=== PATIENT | male | born 1940 | race Caucasian/White ===

== ENCOUNTER 2021-08-24 13:14 | Outpatient (CLI) | payer SELFPAY ==
--- NOTE | 2021-08-24 13:00 | DI.RAD_ITS ---
Exam(s) XR SHOULDER LT COMPLETE 2+V EXAM: XR SHOULDER LT COMPLETE 2+V CLINICAL HISTORY: evaluation TECHNIQUE: COMPARISON: CR XR SHOULDER RT COMPLETE 2+V from 08/24/2021 FINDINGS: Two views were obtained. There is moderate loss of cartilaginous joint space of glenohumeral joint. The humeral head is subluxed superiorly and abuts the inferior expect of the acromion with subchondr al sclerosis of the humeral head and acromion, this suggests chronic rotator cuff tear or thinning. There are prominent hypertrophic marginal osteophytes at the inferior aspect of the humeral head and to a lesser degree the glenoid. Moderate hypertrophic changes of the AC joint noted as well. IMPRESSION: Degenerative changes as described above. RADIATION DOSE DELIVERED: Total DLP
--- NOTE | 2021-08-24 13:00 | DI.RAD_ITS ---
Exam(s) XR ELBOW RT LIMITED EXAM: XR ELBOW RT LIMITED CLINICAL HISTORY: pain TECHNIQUE: COMPARISON: No exams were available for comparison FINDINGS: Two views were obtained. There is marked soft tissue swelling over the olecranon and there is a prom inent olecranon enthesophyte. There appears to be some narrowing of the cartilaginous joint space of the radial capitellar joint. Mild marginal osteophyte formation of the joints of the elbow is noted . No other significant bony or soft tissue abnormality seen. IMPRESSION: Degenerative changes, olecranon soft tissue swelling could be associated with olecranon bursitis, ple ase correlate clinically. RADIATION DOSE DELIVERED: Total DLP
--- NOTE | 2021-08-24 13:00 | DI.RAD_ITS ---
Exam(s) XR SHOULDER RT COMPLETE 2+V EXAM: XR SHOULDER RT COMPLETE 2+V CLINICAL HISTORY: evaluation TECHNIQUE: COMPARISON: No exams were available for comparison FINDINGS: Two views were obtained. There is severe loss of the cartilaginous joint space of the glenohumeral j oint with some flattening of the humeral head and glenoid and very prominent marginal osteophytes of these bones, particularly inferiorly. There are moderate hypertrophic changes of the acromioclavicul ar joint noted as well. Soft tissue calcifications are noted superior to the AC joint. IMPRESSION: Severe DJD glenohumeral joint. RADIATION DOSE DELIVERED: Total DLP
== END 2021-08-24 13:15 | disposition home or self-care (01) ==
LOC: DIORS 13:20
PROVIDERS: PCP Family Medicine; Referring Provider Family Medicine; Visit Provider Physician Assistant Surgical
DX: M25.521 Pain in right elbow (principal); M79.89 Other specified soft tissue disorders; M77.8 Other enthesopathies, not elsewhere classified; M25.511 Pain in right shoulder; M19.011 Primary osteoarthritis, right shoulder; M25.512 Pain in left shoulder; M19.012 Primary osteoarthritis, left shoulder; M75.102 Unspecified rotator cuff tear or rupture of left shoulder, not specified as traumatic
CPT/HCPCS: 73030; 73070

== ENCOUNTER 2022-06-30 08:39 | Emergency (ER) | payer SELFPAY ==
--- NOTE | 2022-06-30 08:45 | DI.RAD_ITS ---
Exam(s) XR KNEE LT 4V AP,LAT,KARRIE,PAT EXAM: XR KNEE LT 4V AP,LAT,KARRIE,PAT CLINICAL HISTORY: Fall, Swelling, pain R/O Fracture. TECHNIQUE: 2D digital imaging was performed. COMPARISON: No exams were available for comparison FINDINGS: 3 views There is prominent soft tissue swelling anterior to the patella and lower quadriceps tendon. The joanie earance may reflect both skin and subcutaneous thickening as well as a possible fluid collection at t his level. No radiopaque foreign body. Osteophytic densities are seen anterior to the upper patella but does not have the appearance of a true fracture fragment. The patellofemoral joint space compar tment appears unremarkable. There is slight increased density noted within the anterior intra-articu lar Hoffa fat pad. Also with subcutaneous edema noted anterior to the patellar ligament. There is a possible small joint effusion here. Femoral condyles and tibial plateau as well as in the fibular h ead and neck appear unremarkable. No fractures nor obvious degenerative changes. Tiny benign bone i sland is noted in the medial tibial plateau. IMPRESSION: Significant swelling and possible fluid collection anterior to the patella as described above. Also other findings as above. No fractures evident. No significant degenerative changes, particularly gi desire this patient's advanced age. Recommend follow-up MRI. DATA REPOSITORY: RADIATION DOSE DELIVERED:
[2022-06-30 08:51] VITALS: BP 126/71; PULSE 96; RESP 18; TEMP 36.7; O2SAT 99
--- NOTE | 2022-06-30 08:56 | W.ED.GENAD ---
Discharge Plan Disposition Patient Disposition: Home Condition: Stable Discharge Details Clinical Impression: Gouty arthritis of left knee Primary Care Provider: Carmen Romo V ED Provider: Ailyn Sanchez Home Meds and New Rx's Prescriptions: Continued indomethacin 50 mg capsule 50 mg PO TID Rx Instructions: administer with food or milk Discharge Instructions Instructions: Gout (ED) Additional Instructions: At this time there is no evidence for any acute fracture however you do have some increased fluid around the knee joint. I do believe that this is an exacerbation of gouty arthritis caused by trauma. Please continue to take your indomethacin as previously prescribed. You were given a dose here in the department. Please follow-up with orthopedics within the next 1 to 2 weeks, sooner if you have any worsening or spreading of the redness. Rest, ice, compression, elevation while sitting or lying down. Wear the knee splint as needed for comfort. Referrals: Carmen Romo MD [Primary Care Provider] - Jason Souza MD [ [facility]] - 2 weeks Medical Decision Making 82-year-old male presents to the ER accompanied by his family with a chief complaint of left knee pain status post a fall while out in the past approximately 3 days ago. [facility] reports that he reported he slipped on some ice and fell onto his left knee. He did take Tylenol initially but has not taken anything for pain for the last couple of days. 4 view left knee x-ray ordered, Tylenol. Differential diagnosis includes but not limited to fracture, occult fracture, traumatic gouty arthritis flare, less likely septic joint. Please see report below. No acute fractures evident. Do suspect traumatic gouty arthritis. Patient was placed in a hinged knee brace and given indomethacin and instructed to take the indomethacin which he has at home. Discussed RICE procedures and home care strict return instructions and follow-up if any worsening redness or no improvement. Significant other verbalized understanding and patient verbalized understanding. This text was generated using [employer] system, please disregard any oddities of phrase or misspellings. Medical Records Medical records reviewed: Yes I reviewed the patient's medical records. Imaging Data Radiologic Study: Imaging: X-Ray Radiologist's impression: FINDINGS: 3 views There is prominent soft tissue swelling anterior to the patella and lower quadriceps tendon.? The appearance may reflect both skin and subcutaneous thickening as well as a possible fluid collection at this level.? No radiopaque foreign body.? Osteophytic densities are seen anterior to the upper patella but does not have the appearance of a true fracture fragment.? The patellofemoral joint space compartment appears unremarkable.? There is slight increased density noted within the anterior intra-articular Hoffa fat pad.? Also with subcutaneous edema noted anterior to the patellar ligament.? There is a possible small joint effusion here.? Femoral condyles and tibial plateau as well as in the fibular head and neck appear unremarkable.? No fractures nor obvious degenerative changes.? Tiny benign bone island is noted in the medial tibial plateau. IMPRESSION: Significant swelling and possible fluid collection anterior to the patella as described above.? Also other findings as above.? No fractures evident.? No significant degenerative changes, particularly given this patient's advanced age. HPI General Mode of arrival: wheelchair. Date/Time Provider Initiated Documentation: 06/30/22 08:39. Limitations to Documentation: no limitations and physical limitation (Slightly [place], ). Information obtained by: patient, family, RN notes reviewed and old records reviewed. HPI Narrative: 82-year-old male presents to the ER accompanied by his family with a chief complaint of left knee pain status post a fall while out in the past approximately 3 days ago. [facility] reports that he reported he slipped on some ice and fell onto his left knee. He did take Tylenol initially but has not taken anything for pain for the last couple of days. He does present with a knee immobilizer which his placed on his knee. On initial exam he does have some erythema and swelling and tenderness. Does have a history of gouty arthritis, tobacco use, arthritis and rotator cuff tear. He does not currently take any medications on a regular basis. Related Data Home Medications Medication Instructions Recorded Confirmed indomethacin 50 mg capsule 50 mg PO TID 08/23/21 06/30/22 Allergies Allergy/AdvReac Type Severity Reaction Status Date / Time bee venom protein (honey bee) Allergy Severe Verified 06/30/22 08:55 thimerosal Allergy Intermediate Verified 06/30/22 08:55 [From Merthiolate (thimerosal)] General Stated Complaint: Orthopedic KAVEH: 4 Review of Systems All systems reviewed & are unremarkable except as noted in HPI and below ENT Ears, Nose, Mouth, and Throat: Denies neck pain Musculoskeletal Musculoskeletal: Reports as per HPI, Denies back pain, Reports arthralgias, Reports joint swelling and Denies neck pain Integumentary/Breasts Skin/Breast: Reports as per HPI and Reports skin swelling PFSH All Active Problems (Updated 06/30/22 @ 10:18 by Ailyn Sanchez NP) Gouty arthritis of left knee (Acute) Gouty bursitis of right olecranon (Acute) Arthritis of right shoulder region (Acute) Rotator cuff tear arthropathy of left shoulder (Acute) Vision changes (Acute) Medical History History of tobacco use Social History Smoking/Tobacco Use Status: Former Tobacco Use Smoking risk assessment performed?: Yes Alcohol Intake: former Drug use: Never Substance use type: does not use Current gender identity: male Exam Extrem Knee images: 1. Erythema, swelling tenderness Course Vital Signs Vital signs: Vital Signs Temperature 36.7 C 06/30/22 08:51 Pulse 96 H 06/30/22 08:51 Respiratory Rate 18 06/30/22 08:51 Blood Pressure 126/71 06/30/22 08:51 Pulse Oximetry 99 06/30/22 08:51 Temperature 36.7 C 06/30/22 08:51 Temperature Source Temporal Artery Scan 06/30/22 08:51 Pulse 96 H 06/30/22 08:51 Respiratory Rate 18 06/30/22 08:51 Blood Pressure 126/71 06/30/22 08:51 Blood Pressure Position Sitting 06/30/22 08:51 Pulse Oximetry 99 06/30/22 08:51 Oxygen Delivery Method Room Air 06/30/22 08:51 Oxygen Flow Rate 0 06/30/22 08:51
[2022-06-30] MEDS: Acetaminophen 500 MG TAB PO (09:05)
[2022-06-30] MEDS: Indomethacin 25 MG CAP 50 MG PO (10:23)
== END 2022-06-30 10:34 | disposition home or self-care (01) ==
PROVIDERS: Emergency Provider Registered Nurse Emergency; PCP Family Medicine
DX: M25.562 Pain in left knee (principal); W00.0XXA Fall on same level due to ice and snow, initial encounter; M10.9 Gout, unspecified
CPT/HCPCS: 29505; 99283; 73564

== ENCOUNTER 2024-11-25 17:30 | Emergency (ER) | payer MEDICARE, MEDICAID, SELFPAY ==
[2024-11-25 17:34] VITALS: BP 150/72; PULSE 84; RESP 20; TEMP 37.1; O2SAT 96
--- NOTE | 2024-11-25 17:45 | DI.CT_ITS ---
Exam(s) CT HEAD CERVICAL SPINE WO EXAM: CT HEAD CERVICAL SPINE WO CLINICAL HISTORY: knocked down by dog, dementia. TECHNIQUE: Imaging Protocol: Axial computed tomography images with coronal and sagittal reformatted images were created and reviewed COMPARISON: No exams were available for comparison FINDINGS: Head CT Ventricles and Extra axial spaces: Normal in size and morphology for the patient's age. Hemorrhage: None. Cerebral parenchyma: No evidence of mass or acute infarct. Moderate atrophy. Moderate bilateral a reas of low attenuation in the white matter consistent with small vessel disease. Midline shift: None. Brainstem/Cerebellum: Normal. Calvarium: Normal. Visualized Paranasal sinuses/Mastoids: Mucous at the floor of the right maxillary sinus. Soft tissues: Unremarkable. Cervical Spine CT BONES: Vertebral body heights are maintained. Degenerative straightening of the normal cervical lord osis. There is no evidence of acute fracture. Severe degenerative disc changes and facet degenerative changes are seen . SOFT TISSUES: No paraspinal hematoma. The airway appears intact. No pneumothorax is seen at the lung apices. IMPRESSION: Head CT: No acute abnormality. C-spine CT: Degenerative changes, no acute abnormality. RADIATION DOSE DELIVERED: Total DLP DATA REPOSITORY: All CT scans at this facility are submitted to the National Radiology Data Registry (NRDR) Dose Index Registry (DIR) with the [employer] ([employer]). RADIATION OPTIMIZATION: All CT scans at this facility use at least one of these dose optimization te chniques: automated exposure control; mA and/or kV adjustment per patient size (includes targeted exa ms where dose is matched to clinical indication); or iterative reconstruction.
--- NOTE | 2024-11-25 17:45 | DI.RAD_ITS ---
Exam(s) XR FOREARM RT EXAM: XR FOREARM RT CLINICAL HISTORY: dog attack, multiple puncture wounds. TECHNIQUE: 2D digital imaging was performed. Two views. COMPARISON: CR XR ELBOW RT LIMITED from 08/24/2021 FINDINGS: BONES: No acute fracture is present. No bony destructive lesion is seen. Severe degenerative changes of the distal radial ulnar joint and 1st carpal metacarpal joint. Spurring at the olecranon and maximino noid process as well as margin of the radial head. SOFT TISSUE: Extensive soft tissue air in the mid to distal forearm related to dog bite. Chronic of focal swelling at the olecranon. Vascular calcifications. IMPRESSION: Extensive soft tissue injury to the mid to distal forearm. No evidence of fracture. DATA REPOSITORY: RADIATION DOSE DELIVERED:
[2024-11-25 17:46] VITALS: PULSE 89; O2SAT 97
--- NOTE | 2024-11-25 17:47 | ED.GENADUL_ITS ---
Discharge Plan Disposition Patient Disposition: Home Discharge Details Clinical Impression: Dog bite Primary Care Provider: Carmen Romo V ED Provider: Mary Amaya Home Meds and New Rx's Prescriptions: New amoxicillin-pot clavulanate 875-125 mg tablet 1 tab PO BID Qty: 8 0RF No Action indomethacin 50 mg capsule 50 mg PO TID Rx Instructions: administer with food or milk memantine 10 mg tablet 10 mg PO QPM Discharge Instructions Instructions: Animal Bites ED Additional Instructions: Please call your primary care provider first thing in the morning to schedule follow-up appointment for reassessment and to make sure your wounds are healing up well. Your scans were reassuring. Your tetanus is up-to-date, last was given in 2021 Please keep your wounds clean and dry. Wash daily with antibacterial soap and water. You may apply a thin layer of bacitracin or triple antibiotic ointment. Cover with nonstick bandages. Please take the Augmentin as prescribed to help prevent infection Return to emergency care if you develop new fever/chills, severe headaches, uncontrollable vomiting, redness/swelling/pain around wounds concerning for infection, or if you are very worried and need to be rechecked again immediately Referrals: Carmen Romo MD [Primary Care Provider] - HPI <Mary Paris - Last Filed: 11/25/24 21:16> General Date/Time Provider Initiated Documentation: 11/25/24 17:39 . HPI Narrative: Max is an 84-year-old male with history of dementia who presents to the emergency department accompanied by family for evaluation after dog attack. He reports that a family member's dog which is a part [employer] saw him outside and jumped through the screen door, attacking him. Patient reports he was knocked to the ground (grass), denies loss of consciousness. Dog stopped attack without intervention. He is a family members dog, up-to-date for shots. Slava sustained lacerations/puncture wounds to right forearm, right side of abdomen, and left ear lobe/pinna. History limited due to patient's dementia. He is not on anticoagulation. Related Data Home Medications ?Medication ?Instructions ?Recorded ?Confirmed indomethacin 50 mg capsule 50 mg PO TID 08/23/21 11/25/24 memantine 10 mg tablet 10 mg PO QPM 10/14/24 11/25/24 amoxicillin 875 mg-potassium 1 tab PO BID #8 tabs 11/25/24 clavulanate 125 mg tablet Previous Rx's ?Medication ?Instructions ?Recorded amoxicillin 875 mg-potassium 1 tab PO BID #8 tabs 11/25/24 clavulanate 125 mg tablet Allergies Allergy/AdvReac Type Severity Reaction Status Date / Time bee venom protein (honey bee) Allergy Severe Anaphylaxis Verified 11/25/24 17:46 thimerosal (From Merthiolate Allergy Intermediate Hives Verified 11/25/24 17:46 (thimerosal)) General Stated Complaint: Laceration KAVEH: 4 Exam <Mary Cesarhimi Wellington SendTask Filed: 11/25/24 21:16> Const General: cooperative, healthy appearing, comfortable and no acute distress Nutritional Appearance: thin Orientation: alert and oriented x3 HENMT Head: normal to inspection, no palpable skull fracture and normocephalic Head images: 2 1. Through and through laceration to pinna of left ear, as well as superficial lacerations to earlobe Ears: hearing grossly normal bilaterally and other General nose exam: external nose normal Face and sinus: normal facial exam Mouth: oral mucosae normal Throat: posterior oropharynx normal Neck Neck: normal visual inspection, full ROM and no lymphadenopathy Chest Chest: normal inspection of the chest and normal palpation of entire chest wall Resp Effort & Inspection: normal respiratory effort and able to speak in complete sentences Auscultation: clear to auscultation bilaterally Cardio Rate: regular rate Rhythm: regular rhythm Pulses: radial pulses present GI Inspection: other (puncture wound and bruising w/ teeth eisenberg to R side of abdomen) Palpation: soft, not firm, no guarding and not rigid Auscultation: normal bowel sounds Skin Trauma: laceration (superficial to R forearm) Other: Neuro General: patient alert, tone normal and moves all extremities Cranial Nerves: PERRL, EOM intact bilaterally, no nystagmus and facial strength normal Cognition: abnormal cognition (dementia at baseline) Speech: speech normal Motor: muscle tone normal throughout and strength 5/5 throughout Sensory Exam: no sensory deficits noted Extrem General: full ROM, capillary refill normal, no pedal edema and no calf tenderness Course <Mary M Choco Agendize Filed: 11/25/24 21:16> Vital Signs Vital signs: Vital Signs Temperature 37.1 C 11/25/24 17:34 Pulse 84 11/25/24 17:34 Respiratory Rate 20 11/25/24 17:34 Blood Pressure 150/72 H 11/25/24 17:34 Pulse Oximetry 96 11/25/24 17:34 Temperature 37.1 C 11/25/24 17:34 Temperature Source Oral 11/25/24 17:34 Pulse 84 11/25/24 17:34 Respiratory Rate 20 11/25/24 17:34 Blood Pressure 150/72 H 11/25/24 17:34 Pulse Oximetry 96 11/25/24 17:34 Medical Decision Making <Mary Paris - Last Filed: 11/25/24 21:16> Initial Assessment: 84-year-old male with dog bite injuries, including a laceration on the earlobe and a puncture wound on the arm. Patient fell to the ground during the incident, raising concerns due to his age and history of dementia limiting history and exam. I did review patient's chart, last Tdap was in 2021 ED Course: - Physical examination revealed a laceration on the earlobe and a puncture wounds on the R arm and R side of abdomen -Wounds cleansed by ED techs with irrigation and chlorhexidine. No foreign bodies visualized in wounds; wounds explored to the base in a bloodless field - Conducted head and neck examination due to fall and dementia history. - Ordered arm x-ray to assess injury. - Planned head and neck imaging to rule out potential injuries; no acute abnormalities noted. Patient does not have any neck pain - No red flags concerning for acute intra-abdominal injury, as mechanism of injury likely a pulling of the skin by the dog; patient denies abdominal pain and has no tenderness to palpation. Abdominal POCUS performed with Dr. Thomas at bedside, no free fluid noted. Final Assessment: Patient sustained a dog bite resulting in a laceration on the earlobe and a puncture wound on the arm. Given the patient's fall and history of dementia, head and neck imaging is warranted to rule out additional injuries. Arm x-ray ordered to assess the extent of the arm injury. Clinical Impression: - Dog bite - Laceration on earlobe - Puncture wounds (R forearm, R abdomen) Disposition: - Discharge MDM Components Evaluation: - Number of Differential Diagnoses or Management Options: Dog bite, fall-related injuries - Amount and Complexity of Data Reviewed: Physical examination, arm x-ray, head and neck imaging - Risk of Complication and Morbidity or Mortality: Increased risk due to patient's age and history of dementia Patient consented to the use of [facility] Imaging Data Radiologic Study: Radiologist's impression: PROCEDURE INFORMATION: Exam: CT Head Without Contrast Exam date and time: 11/25/2024 6:13 PM Age: 84 years old Clinical indication: Other: Knocked down by dog, dementia TECHNIQUE: Imaging protocol: Computed tomography of the head without contrast. Total images: 1888 Radiation optimization: All CT scans at this facility use at least one of these dose optimization techniques: automated exposure control; mA and/or kV adjustment per patient size (includes targeted exams where dose is matched to clinical indication); or iterative reconstruction. COMPARISON: No relevant prior studies available. FINDINGS: Brain: No intra or extra-axial bleed. Mild atrophy and significant white matter disease. Tiny old right lentiform lacunar infarct. No edema. Cerebral ventricles: Mild hydrocephalus ex vacuo. Paranasal sinuses: No significant mucosal thickening or fluid levels. Mastoid air cells: No mastoid effusion. Bones: TMJ osteoarthritis. Soft tissues: Unremarkable. IMPRESSION: No acute intracranial abnormality/bleed. PROCEDURE INFORMATION: Exam: CT Cervical Spine Without Contrast Age: 84 years old Clinical indication: Other: Knocked down by dog, dementia TECHNIQUE: Imaging protocol: Computed tomography of the cervical spine without contrast. Radiation optimization: All CT scans at this facility use at least one of these dose optimization techniques: automated exposure control; mA and/or kV adjustment per patient size (includes targeted exams where dose is matched to clinical indication); or iterative reconstruction. COMPARISON: No relevant studies. FINDINGS: Bones: Slight anterior subluxation C2 on C3. No acute fracture. Severe disc space narrowing C3-C4 through C6-C7 associated with marginal osteophytes and secondary spondylotic stenosis. Wellcircumscribed lucent lesion C3, nonaggressive in appearance. Multilevel facet arthropathy and uncovertebral spondylosis contributes to foraminal stenosis. Possible rotary subluxation C1-C2 level. Paranasal sinuses: Retention cyst right maxillary sinus. Lungs: Visualized lungs are unremarkable. Soft tissues: Unremarkable. IMPRESSION: 1. No acute fracture. 2. C2-C3 anterolisthesis which may be related to facet arthropathy but correlate with MRI if ligamentous injury is suspected. Radiologic Study #2: Radiologist's impression: PROCEDURE INFORMATION: Exam: XR Right Forearm Exam date and time: 11/25/2024 6:24 PM Age: 84 years old Clinical indication: Injury or trauma; Other: Dog attack, multiple puncture wounds; Blunt trauma (contusions or hematomas); Arm, lower; Right TECHNIQUE: Imaging protocol: Radiologic exam of the right forearm. Views: 2 views. COMPARISON: CR XR ELBOW RT LIMITED 08/24/2021 1:30 PM FINDINGS: Bones/joints: No acute fracture or dislocation. Severe degenerative changes are present at the radiocarpal joint, the 1st CMC joint, and the elbow joint. Soft tissues: There is extensive subcutaneous emphysema at the wrist consistent with soft tissue trauma. Focal soft tissue swelling overlies the olecranon suggesting an olecranon bursitis. No unexpected radiopaque foreign bodies. IMPRESSION: 1. No acute bony injury. 2. Extensive subcutaneous emphysema at the wrist and soft tissue swelling over the olecranon as above. No unexpected radiopaque foreign bodies. 3. Degenerative changes. Quality:SDOH Health Related Social Needs: 2 No Data to Display PFSH <Mary Paris - Last Filed: 11/25/24 21:16> All Active Problems (Updated 11/25/24 @ 19:17 by Mary Paris) Dog bite (Acute) Palliative care status (Acute) Financial difficulties (Acute) Caregiver stress (Acute) ACP (advance care planning) (Acute) Dementia (Chronic) Gouty bursitis of right olecranon (Acute) Arthritis of right shoulder region (Acute) Rotator cuff tear arthropathy of left shoulder (Acute) Vision changes (Acute) Medical History Pain in right foot Pain, joint, shoulder, right Counseled by nurse Visual disturbance Calcium deposit in bursa Nicotine dependence History of tobacco use Surgical History S/P appendectomy Family History Mother , at 80 Heart disease Sister Diabetes Father , suicide at age 40 No problems noted. Sister , torn aorta. No problems noted. Brother Obesity Myocardial infarction Brother Cancer colon or stomach Son No problems noted. Son No problems noted. Son No problems noted. Daughter No problems noted. Social History Smoking/Tobacco Use Status: Former Tobacco Use Smoking risk assessment performed?: Yes Alcohol Intake: former Drug use: Never Substance use type: does not use Household members: significant other Housing: house Number of Children: 4 Current gender identity: male POCUS Exam (ED) <Jenny Thomas MD - Last Filed: 11/25/24 19:57> FAST Exam DATE OF EXAM: 11/25/24 TIME OF EXAM: 19:00 PROVIDER THAT PERFORMED THE STUDY: Jenny Thomas REASON FOR EXAM: Other indication: Dog bite to abdomen VISUALIZED STRUCTURES: Hepatorenal space, Pelvis, Pericardium and Perisplenic space PERTINENT FINDINGS/IMPRESSION: no apparent abnormalities DIFFERENTIAL DIAGNOSES: Exam somewhat limited by patient motion Limited Transthoracic Exam: Exam complete Limited Abdominal Exam: Exam complete Limited Retroperitoneal Exam: Exam complete
[2024-11-25] MEDS: Acetaminophen 325 MG TAB 650 MG PO (18:09)
[2024-11-25] MEDS: Amoxicillin 875/Clav. 125 TAB PO (18:10)
--- NOTE | 2024-11-25 18:57 | DI.VRAD_ITS ---
PROCEDURE INFORMATION: Exam: CT Head Without Contrast Exam date and time: 11/25/2024 6:13 PM Age: 84 years old Clinical indication: Other: Knocked down by dog, dementia TECHNIQUE: Imaging protocol: Computed tomography of the head without contrast. Total images: 1888 Radiation optimization: All CT scans at this facility use at least one of these dose optimization techniques: automated exposure control; mA and/or kV adjustment per patient size (includes targeted exams where dose is matched to clinical indication); or iterative reconstruction. COMPARISON: No relevant prior studies available. FINDINGS: Brain: No intra or extra-axial bleed. Mild atrophy and significant white matter disease. Tiny old right lentiform lacunar infarct. No edema. Cerebral ventricles: Mild hydrocephalus ex vacuo. Paranasal sinuses: No significant mucosal thickening or fluid levels. Mastoid air cells: No mastoid effusion. Bones: TMJ osteoarthritis. Soft tissues: Unremarkable. IMPRESSION: No acute intracranial abnormality/bleed. PROCEDURE INFORMATION: Exam: CT Cervical Spine Without Contrast Exam date and time: 11/25/2024 6:13 PM Age: 84 years old Clinical indication: Other: Knocked down by dog, dementia TECHNIQUE: Imaging protocol: Computed tomography of the cervical spine without contrast. Radiation optimization: All CT scans at this facility use at least one of these dose optimization techniques: automated exposure control; mA and/or kV adjustment per patient size (includes targeted exams where dose is matched to clinical indication); or iterative reconstruction. COMPARISON: No relevant studies. FINDINGS: Bones: Slight anterior subluxation C2 on C3. No acute fracture. Severe disc space narrowing C3-C4 through C6-C7 associated with marginal osteophytes and secondary spondylotic stenosis. Well-circumscribed lucent lesion C3, nonaggressive in appearance. Multilevel facet arthropathy and uncovertebral spondylosis contributes to foraminal stenosis. Possible rotary subluxation C1-C2 level. Paranasal sinuses: Retention cyst right maxillary sinus. Lungs: Visualized lungs are unremarkable. Soft tissues: Unremarkable. IMPRESSION: 1. No acute fracture. 2. C2-C3 anterolisthesis which may be related to facet arthropathy but correlate with MRI if ligamentous injury is suspected. Dictated and Authenticated by: Isac Tineo MD. Orderin Choco Hernandez MD
--- NOTE | 2024-11-25 19:04 | DI.VRAD_ITS ---
PROCEDURE INFORMATION: Exam: XR Right Forearm Exam date and time: 11/25/2024 6:24 PM Age: 84 years old Clinical indication: Injury or trauma; Other: Dog attack, multiple puncture wounds; Blunt trauma (contusions or hematomas); Arm, lower; Right TECHNIQUE: Imaging protocol: Radiologic exam of the right forearm. Views: 2 views. COMPARISON: CR XR ELBOW RT LIMITED 08/24/2021 1:30 PM FINDINGS: Bones/joints: No acute fracture or dislocation. Severe degenerative changes are present at the radiocarpal joint, the 1st CMC joint, and the elbow joint. Soft tissues: There is extensive subcutaneous emphysema at the wrist consistent with soft tissue trauma. Focal soft tissue swelling overlies the olecranon suggesting an olecranon bursitis. No unexpected radiopaque foreign bodies. IMPRESSION: 1. No acute bony injury. 2. Extensive subcutaneous emphysema at the wrist and soft tissue swelling over the olecranon as above. No unexpected radiopaque foreign bodies. 3. Degenerative changes. Dictated and Authenticated by: Carrol Amos MD. Orderin Choco Hernandez MD
[2024-11-25] MEDS: Amox. 875/Clav. 125, 2 TABS/BTL 1 TAB PO (19:21)
[2024-11-25 19:39] VITALS: BP 136/87; PULSE 89; RESP 20; TEMP 36.5; O2SAT 94
== END 2024-11-25 19:42 | disposition home or self-care (01) ==
PROVIDERS: Emergency Provider Nurse Practitioner Family; PCP Family Medicine
DX: S51.831A Puncture wound without foreign body of right forearm, initial encounter (principal); S31.139A Puncture wound of abdominal wall without foreign body, unspecified quadrant without penetration into peritoneal cavity, initial encounter; S01.332A Puncture wound without foreign body of left ear, initial encounter; W54.0XXA Bitten by dog, initial encounter; W54.1XXA Struck by dog, initial encounter; I10 Essential (primary) hypertension; F03.90 Unspecified dementia, unspecified severity, without behavioral disturbance, psychotic disturbance, mood disturbance, and anxiety
CPT/HCPCS: 99284 ×2; 76705; 76857; 93308; 70450; 72125; 73090

== ENCOUNTER 2025-06-20 13:34 | Emergency (ER) | payer MEDICARE, MEDICAID, SELFPAY ==
[2025-06-20 13:44] VITALS: BP 139/120; PULSE 102; RESP 16; TEMP 36.7; O2SAT 93
--- NOTE | 2025-06-20 14:00 | DI.RAD_ITS ---
Exam(s) XR CHEST 1V IN DI DEPT EXAM: XR CHEST 1V IN DI DEPT CLINICAL HISTORY: trauma, dementia TECHNIQUE: 2D digital imaging was performed. COMPARISON: No exams were available for comparison FINDINGS: Overlying monitoring leads. LUNGS: Clear. No pleural abnormality seen. HEART: Normal size. AORTA: Normal diameter. BONES: Severe degenerative changes of the shoulders. Soft tissues: Unremarkable. IMPRESSION: No acute findings. DATA REPOSITORY: RADIATION DOSE DELIVERED:
--- NOTE | 2025-06-20 14:00 | DI.RAD_ITS ---
Exam(s) XR PELVIS AP EXAM: XR PELVIS AP CLINICAL HISTORY: trauma, dementia. TECHNIQUE: 2D digital imaging was performed. Single AP view. COMPARISON: No exams were available for comparison FINDINGS: BONES: No acute fracture is present. No bony destructive lesion is seen. JOINTS: No dislocation present. No joint space narrowing is present. SOFT TISSUE: Inferior abdominal wall hernia repair. IMPRESSION: No acute abnormality. DATA REPOSITORY: RADIATION DOSE DELIVERED:
--- NOTE | 2025-06-20 14:00 | DI.CT_ITS ---
Exam(s) CT HEAD CERVICAL SPINE WO EXAM: CT HEAD CERVICAL SPINE WO CLINICAL HISTORY: trauma, dementia. TECHNIQUE: Imaging Protocol: Axial computed tomography images with coronal and sagittal reformatted images were created and reviewed COMPARISON: CT CT HEAD CERVICAL SPINE WO from 11/25/2024 FINDINGS: Head CT Ventricles and Extra axial spaces: Normal in size and morphology for the patient's age. Hemorrhage: None. Cerebral parenchyma: No evidence of mass or acute infarct. Moderate atrophy. Patchy areas decreased attenuation in the periventricular white matter appear stable. Midline shift: None. Brainstem/Cerebellum: Normal. Calvarium: Normal. Visualized Paranasal sinuses/Mastoids: Clear. Soft tissues: Cerumen in the external auditory canals Cervical Spine CT BONES: Vertebral body heights are maintained. there is no evidence of acute fracture. Advanced degenerative disc changes and facet degenerative changes are seen. Straightening of the normal cervical lordosis. Bilateral neural foraminal narrowing at multiple levels. SOFT TISSUES: No paraspinal hematoma. The airway appears intact. No pneumothorax is seen at the lung apices. IMPRESSION: Head CT: No acute abnormality. C-spine CT: Advanced degenerative changes, no acute abnormality. RADIATION DOSE DELIVERED: Total DLP DATA REPOSITORY: All CT scans at this facility are submitted to the National Radiology Data Registry (NRDR) Dose Index Registry (DIR) with the [employer] ([employer]). RADIATION OPTIMIZATION: All CT scans at this facility use at least one of these dose optimization techniques: automated exposure control; mA and/or kV adjustment per patient size (includes targeted exams where dose is matched to clinical indication); or iterative reconstruction.
--- NOTE | 2025-06-20 14:00 | DI.RAD_ITS ---
Exam(s) XR HAND RT COMPLETE EXAM: XR HAND RT COMPLETE CLINICAL HISTORY: trauma, rt 3rd digit mcp. TECHNIQUE: 2D digital imaging was performed. Three views. COMPARISON: No exams were available for comparison FINDINGS: BONES: No acute fracture is present. No bony destructive lesion is seen. JOINTS: No dislocation present. There are severe degenerative changes at the 1st carpal metacarpal joint, interphalangeal joints of the fingers and proximal radial ulnar joint. Degenerative changes are also present at the metacarpophalangeal joints, greater at the thumb. SOFT TISSUE: Normal. IMPRESSION: Advanced degenerative changes. No acute abnormality is identified. DATA REPOSITORY: RADIATION DOSE DELIVERED:
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
[2025-06-20 14:15] VITALS: PULSE 104; RESP 17
[2025-06-20] MEDS: Diph,Pertuss(Acell),Tet Vac/Pf 0.5 ML SYR IM (16:15)
== END 2025-06-20 16:21 | disposition home or self-care (01) ==
PROVIDERS: Emergency Provider Student in an Organized Health Care Education/Training Program; PCP Family Medicine
DX: S60.221A Contusion of right hand, initial encounter (principal); S00.81XA Abrasion of other part of head, initial encounter; F03.90 Unspecified dementia, unspecified severity, without behavioral disturbance, psychotic disturbance, mood disturbance, and anxiety; Z23 Encounter for immunization; W19.XXXA Unspecified fall, initial encounter
CPT/HCPCS: 99284 ×2; 90471; 90715; 70450; 71045; 72125; 72170; 73130